=== PATIENT | male | born 1970 | race Caucasian/White ===

== ENCOUNTER 2021-06-26 13:00 | Day surgery (SDC) | payer OTHER ==
[~2021-06-26] VITALS: Ht 175.3 cm; Wt 76.2 kg
[~2021-06-26 13:00] MED LIST: AMOX500 PO; BUPR75 PO; Budeprion Xl300 MG PO; Crutch1 EACH MISC; FLUT.05NI; METHI10 PO; METHIMAZOLE5 M1 PO; Norco 5-325 Ta1 EACH PO; OXYACE5T PO; QUET100 PO; TRAM50 PO
== END 2021-06-26 15:35 | disposition home or self-care (01) ==
LOC: ORSCSDS 13:00
PROVIDERS: Surgery
PROC: 0DJD8ZZ Inspection of Lower Intestinal Tract, Via Natural or Artificial Opening Endoscopic (ICD-10-PCS; principal; 2021-06-26 14:45)
DX: Z12.11 Encounter for screening for malignant neoplasm of colon (principal); F31.9 Bipolar disorder, unspecified; K21.9 Gastro-esophageal reflux disease without esophagitis; E78.5 Hyperlipidemia, unspecified; E05.90 Thyrotoxicosis, unspecified without thyrotoxic crisis or storm; F17.210 Nicotine dependence, cigarettes, uncomplicated; Z79.899 Other long term (current) drug therapy
CPT/HCPCS: J2405; J2704; J7120